=== PATIENT | female | born 1950 | race Caucasian/White ===

== ENCOUNTER → 2017-06-21 | Outpatient (CLI) | payer MEDICARE, MEDICAID ==
[~2017-06-21] MED LIST: ASPI-496 PO; ATOR40TA78 PO; CALC1CAP8 PO; GLIM4TAB2 PO; LINA5TAB PO; LISI40TA PO
[2017-06-21 10:00] LABS: ALANINE AMINOTRANSFERASE 37 U/L (12-78); ALBUMIN 3.8 g/dL (3.4-5.0); ANION GAP 9 mmol/L (5-15); CALCIUM 9.2 mg/dL (8.5-10.1); CHLORIDE 107 mmol/L (98-107); CREATININE 0.79 mg/dL (0.55-1.02)
[2017-06-21 10:03] LABS: ALKALINE PHOSPHATASE 89 U/L (45-117); BILIRUBIN,TOTAL 0.4 mg/dL (0.2-1.0); TOTAL PROTEIN 7.7 g/dL (6.4-8.2)
== END | disposition home or self-care (01) ==
LOC: STAR 08:15
PROVIDERS: ATTEND Obstetrics & Gynecology Female Pelvic Medicine and Reconstructive Surgery
DX: Z01.818 Encounter for other preprocedural examination (principal); N39.3 Stress incontinence (female) (male); N81.2 Incomplete uterovaginal prolapse; R10.2 Pelvic and perineal pain
CPT/HCPCS: 36415; 80053; 93005

== ENCOUNTER 2018-08-11 06:48 | Inpatient (IN) | payer MEDICARE, MEDICAID ==
[~2018-08-11] VITALS: Ht 160 cm; Wt 75.2 kg
--- NOTE | 2018-08-11 06:56 | NUR ---
PT AMBULATES FROM LOBBY TO TRIAGE WITH STEADY GAIT. EKG DONE IN TRIAGE.
--- NOTE | 2018-08-11 07:05 | NUR ---
Note kyleigh in EDM - 08/11/18 at 0718 by OCHOA Pt ambulates with steady gait and balance from ED room to bathroom. STACIE. No obvious defecits observed.
[2018-08-11] MEDS ORDERED: METF500T17 PO (07:18)
[2018-08-11] MEDS ORDERED: ATEN25TA PO (07:18)
--- NOTE | 2018-08-11 07:18 | NUR ---
Prior note charted on wrong pt.
[2018-08-11] MEDS ORDERED: INSU100I13 SC (07:19)
--- NOTE | 2018-08-11 07:20 | NUR ---
PT WITH PERSISTENT COUGH SINCE WEDNESDAY, FONTANEZ, CP AND BACK ACHE WITH COUGHING. PT VERBALIZES "MY WHOLE FAMILY HAS BEEN SICK" PTS RA SAT 88% DROPS TO 86% WITH ACTIVITY. 02 2L NC PLACED WITH EFFECT. ALL MONITORS PLACED. ER PA AT BEDSIDE, POC DISCUSSED AND QUESTIONS ANSWERED.
--- NOTE | 2018-08-11 07:22 | NUR ---
PT TO RADIOLOGY WITH TECH TRANSPORT
[2018-08-11 07:48] LABS: BASOPHILS # (AUTO) 0.02 x10^3/uL (0-0.1); BASOPHILS % (AUTO) 0 % (0-1); EOSINOPHILS # (AUTO) 0.06 x10^3/uL (0-0.4); EOSINOPHILS % (AUTO) 1 % (1-7); LYMPHOCYTES # (AUTO) 1.73 x10^3/uL (1-3.4); LYMPHOCYTES % (AUTO) 30 % (22-44); MD NO; MEAN CORPUSCULAR HEMOGLOBIN 31.5 pg (27.0-34.8); MEAN CORPUSCULAR HGB CONC 32.3 g/dL (32.4-35.8); MEAN CORPUSCULAR VOLUME 97.6 fL (80-100); MEAN PLATELET VOLUME 7.3 fL (7.4-10.4); MONOCYTES # (AUTO) 0.59 x10^3/uL (0.2-0.8); MONOCYTES % (AUTO) 10 % (2-9); NEUTROPHILS # (AUTO) 3.33 x10^3/uL (1.8-6.8); NEUTROPHILS % (AUTO) 58 % (42-75); PLATELET COUNT 210 x10^3/uL (130-400); RED BLOOD COUNT 4.75 x10^6/uL (3.82-5.3); RED CELL DISTRIBUTION WIDTH 13.2 % (9.6-15.2)
[2018-08-11 08:00] LABS: ALANINE AMINOTRANSFERASE 30 U/L (12-78); ALBUMIN 3.8 g/dL (3.4-5.0); ANION GAP 8 mmol/L (5-15); CALCIUM 9.2 mg/dL (8.5-10.1); CHLORIDE 107 mmol/L (98-107); CREATININE 0.89 mg/dL (0.55-1.02)
[2018-08-11 08:04] LABS: ALKALINE PHOSPHATASE 72 U/L (45-117); BILIRUBIN,TOTAL 0.6 mg/dL (0.2-1.0); TOTAL PROTEIN 7.6 g/dL (6.4-8.2); TROPONIN I < 0.015 ng/mL (0.000-0.045)
--- NOTE | 2018-08-11 08:30 | NUR ---
PT AMBULATED ON RA WITH SP02 MONITORING. SP02 RANGED BETWEEN 85-88%, HR 78-82. DISCUSSED WITH DR. PORTILLO, NEW ORDERS REC'D. PLAN FOR ADMIT DISCUSSED WITH PT.
--- NOTE | 2018-08-11 09:00 | NUR ---
PT TO CT WITH TECH TRANSPORT
--- NOTE | 2018-08-11 09:04 | NUR ---
SBAR RPT GIVEN TO SUMEET THIBODEAUX.
--- NOTE | 2018-08-11 09:09 | NUR ---
REPORT FROM HERI FAY, ASSUME CARE OF PT AT THIS TIME. PT TO CT.
[2018-08-11] MEDS ORDERED: OMNIPAQUE 350 MG/ML, 100ML BOTTLE ONE (09:44)
--- NOTE | 2018-08-11 10:19 | NUR ---
ERP IN TO UPDATE PT ON CTA. CONTINUE TO AWAIT ADMISSION BED. PT IN NAD, CALL LIGHT WITHIN REACH, FAMILY AT BS.
--- NOTE | 2018-08-11 10:29 | NUR ---
PT UPDATED ON POSSIBLE DELAY IN GETTING ROOM ON MED/TELE. PT C/O BEING COLD AND HUNGRY. HILARY WARMER PLACED, MEAL TRAY ORDERED. PT OFFERED HOSPITAL BED WHICH SHE DECLINES AT THIS TIME. CALL LIGHT WITHIN REACH.
--- NOTE | 2018-08-11 11:03 | NUR ---
[facility] IN TO SEE PT.
[2018-08-11] MEDS: NICOTINE 7 MG/24 HR PATCH.TD24 TD SCH (11:30)
[2018-08-11] MEDS ORDERED: ALBUTEROL/IPRATROPIUM 2.5MG/0.5MG, 3 ML IPPB PRN (11:30)
[2018-08-11] MEDS ORDERED: POLYETHYLENE GLYCOL 17 GM PACKET PO PRN (11:30)
[2018-08-11] MEDS ORDERED: ACETAMINOPHEN 325 MG TABLET PO PRN (11:30)
[2018-08-11 11:56] LABS: TROPONIN I < 0.015 ng/mL (0.000-0.045)
[2018-08-11 12:02] LABS: THYROID STIMULATING HORMONE 0.587 mIU/L (0.358-3.740)
--- NOTE | 2018-08-11 12:09 | NUR ---
REPORT TO YOMAIRA RN, PT READY FOR TRANSPORT
--- NOTE | 2018-08-11 12:20 | NUR ---
MEAL TRAY PROVIDED TO PT.
[2018-08-11 12:41] LABS: HEMOGLOBIN A1C 6.2 % (4.2-6.3)
[2018-08-11 14:23] VITALS: BP 123/76
[2018-08-11] MEDS: predniSONE 50MG TABLET PO SCH (14:32)
[2018-08-11] MEDS: GUAIFENESIN 200 MG TABLET PO SCH ×3 (14:32→21:57)
[2018-08-11] MEDS: PANTOPROZOLE 40MG TABLET PO SCH (14:33)
[2018-08-11] MEDS: HEPARIN 5,000 UNITS/ML, 1ML SQ SCH ×2 (14:33→21:58)
[2018-08-11 18:34] LABS: TROPONIN I < 0.015 ng/mL (0.000-0.045)
[2018-08-11 19:12] VITALS: BP 111/73
[2018-08-11] MEDS ORDERED: ALBUTEROL/IPRATROPIUM 2.5MG/0.5MG, 3 ML NPPB PRN (19:30)
[2018-08-11] MEDS: ATORVASTATIN 40 MG TABLET PO SCH (21:00)
[2018-08-11] MEDS: MONTELUKAST 10 MG TABLET PO SCH (21:57)
[2018-08-11] MEDS: DOXYCYCLINE 100MG TABLET PO SCH (21:57)
[2018-08-11] MEDS: SODIUM CHLORIDE FLUSH 10ML SYR IVF SCH (21:59)
[2018-08-11] MEDS: INSULIN GLARGINE 100 UNITS/ML, PEN SQ-INSULIN SCH (21:59)
[2018-08-12 00:41] VITALS: BP 103/68
[2018-08-12] MEDS: GUAIFENESIN 200 MG TABLET PO SCH ×4 (06:00→20:48)
[2018-08-12] MEDS: HEPARIN 5,000 UNITS/ML, 1ML SQ SCH ×3 (06:00→20:48)
[2018-08-12 06:34] LABS: BASOPHILS # (AUTO) 0.02 x10^3/uL (0-0.1); BASOPHILS % (AUTO) 0 % (0-1); EOSINOPHILS # (AUTO) 0.01 x10^3/uL (0-0.4); EOSINOPHILS % (AUTO) 0 % (1-7); LYMPHOCYTES # (AUTO) 1.89 x10^3/uL (1-3.4); LYMPHOCYTES % (AUTO) 36 % (22-44); MD NO; MEAN CORPUSCULAR HGB CONC 33.5 g/dL (32.4-35.8); MEAN CORPUSCULAR VOLUME 98.3 fL (80-100); MEAN PLATELET VOLUME 7.8 fL (7.4-10.4); MONOCYTES # (AUTO) 0.48 x10^3/uL (0.2-0.8); MONOCYTES % (AUTO) 9 % (2-9); NEUTROPHILS # (AUTO) 2.82 x10^3/uL (1.8-6.8); NEUTROPHILS % (AUTO) 54 % (42-75); PLATELET COUNT 193 x10^3/uL (130-400); RED BLOOD COUNT 4.28 x10^6/uL (3.82-5.3); RED CELL DISTRIBUTION WIDTH 13.2 % (9.6-15.2)
[2018-08-12 07:12] LABS: ALBUMIN 3.4 g/dL (3.4-5.0); ANION GAP 10 mmol/L (5-15); CALCIUM 8.9 mg/dL (8.5-10.1); CHLORIDE 110 mmol/L (98-107)
[2018-08-12 07:15] LABS: ALANINE AMINOTRANSFERASE 23 U/L (12-78); ALKALINE PHOSPHATASE 64 U/L (45-117); CREATININE 0.77 mg/dL (0.55-1.02); TOTAL PROTEIN 7.2 g/dL (6.4-8.2)
[2018-08-12] MEDS: predniSONE 50MG TABLET PO SCH (08:00)
[2018-08-12] MEDS: LINAGLIPTIN 5 MG TAB PO SCH (08:19)
[2018-08-12] MEDS: DOXYCYCLINE 100MG TABLET PO SCH ×2 (08:19→20:48)
[2018-08-12] MEDS: LISINOPRIL 40 MG TABLET PO SCH (08:19)
[2018-08-12] MEDS: CALCIUM/VITAMIN D3 250-125 TABLET PO SCH (08:19)
[2018-08-12] MEDS: ATENOLOL 50 MG TABLET PO SCH (08:19)
[2018-08-12] MEDS: ASPIRIN 81 MG TABLET EC PO SCH (08:19)
[2018-08-12 08:20] VITALS: BP 119/77
[2018-08-12] MEDS: SODIUM CHLORIDE FLUSH 10ML SYR IVF SCH ×2 (08:20→20:49)
[2018-08-12] MEDS: PANTOPROZOLE 40MG TABLET PO SCH (08:24)
[2018-08-12] MEDS: NICOTINE 7 MG/24 HR PATCH.TD24 TD SCH (11:30)
[2018-08-12 14:51] VITALS: BP 109/73
[2018-08-12 19:31] VITALS: BP 122/80
[2018-08-12] MEDS: ATORVASTATIN 40 MG TABLET PO SCH (20:48)
[2018-08-12] MEDS: MONTELUKAST 10 MG TABLET PO SCH (20:48)
[2018-08-12] MEDS: INSULIN GLARGINE 100 UNITS/ML, PEN SQ-INSULIN SCH (20:49)
[2018-08-13] MEDS: HEPARIN 5,000 UNITS/ML, 1ML SQ SCH (07:30)
[2018-08-13 07:54] VITALS: BP 125/79
[2018-08-13] MEDS: predniSONE 50MG TABLET PO SCH (08:00)
[2018-08-13] MEDS: PANTOPROZOLE 40MG TABLET PO SCH (09:30)
[2018-08-13] MEDS: ASPIRIN 81 MG TABLET EC PO SCH (09:31)
[2018-08-13] MEDS: CALCIUM/VITAMIN D3 250-125 TABLET PO SCH (09:31)
[2018-08-13] MEDS: ATENOLOL 50 MG TABLET PO SCH (09:32)
[2018-08-13] MEDS: GUAIFENESIN 200 MG TABLET PO SCH (09:32)
[2018-08-13] MEDS: LINAGLIPTIN 5 MG TAB PO SCH (09:32)
[2018-08-13] MEDS: DOXYCYCLINE 100MG TABLET PO SCH (09:32)
[2018-08-13] MEDS: SODIUM CHLORIDE FLUSH 10ML SYR IVF SCH (09:34)
[2018-08-13] MEDS: LISINOPRIL 40 MG TABLET PO SCH (09:36)
[2018-08-13] MEDS ORDERED: GUAI-103 PO (11:04)
[2018-08-13] MEDS ORDERED: MONT10TA9 PO (11:04)
[2018-08-13] MEDS ORDERED: PRED50TA PO (11:04)
[2018-08-13] MEDS ORDERED: NICO-485 TD (11:04)
[2018-08-13] MEDS ORDERED: DOXY100T PO (11:04)
[2018-08-13] MEDS ORDERED: ALBU8.5H8 INH (11:19)
[2018-08-13] MEDS ORDERED: BUDE10.22 INH (11:19)
== END 2018-08-13 13:12 | disposition home or self-care (01) | DRG 189 ==
LOC: ED 07:32 → EDIP 08:57 → 4EST 12:55 → DCLOUNGE 08-13 13:04
PROVIDERS: ADMIT Internal Medicine; ATTEND Internal Medicine
DX: J96.01 Acute respiratory failure with hypoxia (principal); J44.1 Chronic obstructive pulmonary disease with (acute) exacerbation; J01.80 Other acute sinusitis; E11.9 Type 2 diabetes mellitus without complications; E78.5 Hyperlipidemia, unspecified; F17.200 Nicotine dependence, unspecified, uncomplicated; I10 Essential (primary) hypertension; J06.9 Acute upper respiratory infection, unspecified; J44.9 Chronic obstructive pulmonary disease, unspecified; Z79.4 Long term (current) use of insulin; Z79.82 Long term (current) use of aspirin; Z90.710 Acquired absence of both cervix and uterus; J01.90 Acute sinusitis, unspecified; B97.89 Other viral agents as the cause of diseases classified elsewhere
CPT/HCPCS: 36415; 71046; 71275; 80053; 82962; 83036; 83735; 83880; 84443; 84484; 85025; 93005; 93306; 99285; G0378; J1644; Q9967; J1815; J7512